=== PATIENT | male | born 1935 | race Caucasian/White ===

== ENCOUNTER 2017-03-02 08:07 | Emergency (ER) | payer OTHER, MEDICARE ==
[~2017-03-02] VITALS: Ht 175.3 cm; Wt 78.0 kg
[2017-03-02 08:14] VITALS: BP 139/83
[2017-03-02] MEDS ORDERED: METOPROLOL TART25 M1 PO ×2 (08:20→08:21)
[2017-03-02] MEDS ORDERED: ATORVASTATIN CA10 M1 PO (08:21)
[2017-03-02] MEDS ORDERED: XALATAN2.5 ML OPH (08:21)
[2017-03-02] MEDS ORDERED: WARFARIN SODIUM4 M1 PO (08:21)
[2017-03-02] MEDS ORDERED: PRESERVISION A1 EAC1 PO (08:22)
--- NOTE | 2017-03-02 08:35 | ED MVC/FALL/TRAUMA COMPLAINT ---
History of Present Illness General Chief Complaint: General Adult Stated Complaint: BACK/R HIP PAIN S/P FALL LAST WEEK Source: patient, family Exam Limitations: no limitations Vital Signs & Intake/Output Vital Signs & Intake/Output Vital Signs Date Time Temp Pulse Resp B/P B/P Pulse O2 O2 Flow FiO2 Mean Ox Delivery Rate 03/02 0814 96.9 68 20 139/83 100 Room Air Allergies Coded Allergies: No Known Allergies (12/06/15) Reconcile Medications Atorvastatin Calcium 10 MG TABLET 1 TAB PO DAILY CHOLESTEROL (Reported) Latanoprost (Xalatan) 0.005 % DROPS 1 GTT OPH DAILY EYE (Reported) Metoprolol Tartrate 25 MG TABLET 2 TAB PO DAILY HEART (Reported) Metoprolol Tartrate 25 MG TABLET 1 TAB PO QPM HEART (Reported) Tramadol HCl 50 MG TABLET 1 TAB PO BIDP PRN pain Vit C/E/Zn/Coppr/Lutein/Zeaxan (Preservision Areds 2 Softgel) 250-200-40 CAPSULE 1 TAB PO DAILY EYE (Reported) Warfarin Sodium 4 MG TABLET 1 TAB PO DAILY BLOOD THINNER (Reported) Triage Note: C/O MID, LOW BACK AND R HIP PAIN X 9 DAYS. S/P FALL. STATES HIS R LEG GAVE OUT AND HE LANDED ON A WOODEN BEAM WHILE CLEANING OUT GARAGE. DENIES DIZZINESS, WEAKNESS, CHEST PAIN PRIOR TO FALL. Triage Nurses Notes Reviewed? yes Onset: Abrupt Duration: day(s): Timing: recent history Severity: moderate Injuries/Fall Location: back, lower extremity Method of Injury: fall Loss of Consciousness: no loss of consciousness No Modifying Factors: none HPI: 81y/o male presents to emergency department complaining of Right hip and low back pain after fall 9 days ago. Patient states that while walking in garage his right leg gave out causing him to fall backward onto his right hip and back. He was able to get up and stand on his own after fall. He may have hit the back of his head however he denies loss of consciousness. Pain is described as throbbing with radiation to right hip to right knee and sometimes all the way down to right foot. At times pain is worse with laying down. Patient has tried Tylenol which has not alleviated his pain. he denies chest pain, abdominal pain , confusion, changes in vision, photophobia, worsening of headaches. (RUFUS ORANTES,MELINA) Past History Travel History Traveled to [place] past 21 day No Medical History Any Pertinent Medical History? see below for history Neurological: NONE EENT: NONE Cardiovascular: hypertension, PACEMAKER, Respiratory: NONE Gastrointestinal: NONE Hepatic: NONE Renal: NONE Musculoskeletal: osteoarthritis Psychiatric: NONE Endocrine: NONE Blood Disorders: NONE Cancer(s): NONE Surgical History Surgical History: non-contributory Psychosocial History Who do you live with Patient/Self What is your primary language Korean Tobacco Use: Current Daily Use Daily Tobacco Use Amount/Type: Cigar or Pipe use daily ETOH Use: denies use Family History Hx Contributory? No (MELINA MALAGON) Review of Systems Review of Systems Constitutional: Reports: weakness. Comments Review of systems: See HPI, All other systems negative. Constitutional: Intermittent weakness, no chills no fever, no malaise no weight loss HEENT: No visual changes no photophobia Cardiovascular: No chest pain , no palpitation, no syncope Skin: no rashes, no change in skin, no bruises Respiratory: No dyspnea no cough GI: No nausea no vomiting, no abdominal pain : No urinary retention Muscle skeletal: + chronic joint pain, no joint swelling,+ back pain, no neck pain, Neurologic: No numbness no confusion, +headacheS Psych: No stress no depression,. Heme/endocrine: No bruising no bleeding Immunology: No lymphadenopathy (MELINA MALAGON) Physical Exam Physical Exam General Appearance: well developed/nourished, no apparent distress, alert, awake Comments: Well-developed well-nourished person in no acute distress HEENT: Hearing grossly normal; EOMI, HEAD is atraumatic. moist mucous membranes. Neck: Supple, normal range of motion without pain or tenderness Back: Thoracic and Lumbar vertebrae without tenderness, +Sacral tenderness Full range of motion Cardiovascular: Regular rate and rhythms no murmurs rubs or gallops Respiratory: Chest nontender. No respiratory distress. Patient speaking in full complete sentences. Breath sounds clear to auscultation bilaterally: NO W/R/R Abdomen: Soft, nontender nondistended, No rebound/guarding Extremity: No edema, full range of motion of extremities,5 out of 5 strength noted to bilateral lower extremities, tenderness at right hip joint, right upper thigh and right knee, straight leg raise is negative Neuro: Alert oriented x3, motor sensory normal. There were no obvious focal neurologic abnormalities. Skin: No appreciable rash on exposed skin, skin is warm and dry. Psych: Mood and affect is normal, memory and judgment is normal. Core Measures ACS in differential dx? No Severe Sepsis Present: No Septic Shock Present: No (MELINA MALAGON) Progress Differential Diagnosis: abd injury, C/T/L spine injury, ext injury, pelvis injury, muscle strain, bone contusion, radiculopathy Plan of Care: Orders Procedure Date/time Status XRY-AP PELVIS 03/02 845 Active XRY-HIP 2-3 VIEWS, RIGHT 03/02 845 Active 03/02/2017 9:08:08 AM Patient is sitting comfortably in stretcher, in no acute distress. He is able to ambulate with cane, able to move all limbs. No acute fracture seen on x-ray as confirmed with radiologist. Signs and symptoms are consistent with hip contusion. Adomenal/vertebral injuries were considered and evaluated for on physical exam, no tenderness to palpatation observed, suspicion for these injuries is low at this time. Patient was instructed to take tramadol or tylenol for pain, rest, apply ice, and follow up with his primary care doctor. He is in agreement with the plan of care. He will follow up with worsening symptoms or concerns. (MELINA MALAGON) Diagnostic Imaging: Viewed by Me: Radiology Read. Discussed w/RAD: Radiology Read. Radiology Impression: PATIENT: YESI AYERS PRESENT AGE: 81 PATIENT ACCOUNT NO: [id number] : 34 LOCATION: [facility] ORDERING PHYSICIAN: MELINA ORANTES SERVICE DATE: 03/02/17 EXAM TYPE: RAD - XRY- AP PELVIS; XRY-HIP 2-3 VIEWS, RIGHT EXAMINATION: XR PELVIS XR HIP, RIGHT CLINICAL INFORMATION: Right hip and sacral pain status post fall, for 9 days. COMPARISON: 07/27/2016 TECHNIQUE: Frontal view of the pelvis. 2 views of the right hip. FINDINGS: No fracture or dislocation. The femoral heads are well- seated within their respective acetabula. Mild joint space narrowing at both hips with subchondral sclerosis. The pelvic rim is intact. The sacroiliac joints and pubic symphysis are intact. Phleboliths overlie the pelvis. The bowel gas pattern is unremarkable. Degenerative changes of the lower lumbar spine. IMPRESSION: No acute fracture or malalignment. Mild degenerative change. DICTATED BY: MALU TEMPLETON MD DATE/TIME DICTATED:03/02/17933 WORKERS COMPENSATION ANALYST:NISHA DATE/TIME TRANSCRIBED:03/02/17933 CONFIDENTIAL, DO NOT COPY WITHOUT APPROPRIATE AUTHORIZATION. <Electronically signed in Other Vendor System> SIGNED BY: MALU TEMPLETON MD 03/02/17941, PATIENT: YESI AYERS PRESENT AGE: 81 PATIENT ACCOUNT NO: [id number] : 34 LOCATION: [facility] ORDERING PHYSICIAN: MELINA ORANTES SERVICE DATE: 03/02/17 EXAM TYPE: RAD - XRY-AP PELVIS; XRY-HIP 2-3 VIEWS, RIGHT EXAMINATION: XR PELVIS XR HIP, RIGHT CLINICAL INFORMATION: Right hip and sacral pain status post fall, for 9 days. COMPARISON: 07/27/2016 TECHNIQUE: Frontal view of the pelvis. 2 views of the right hip. FINDINGS: No fracture or dislocation. The femoral heads are well-seated within their respective acetabula. Mild joint space narrowing at both hips with subchondral sclerosis. The pelvic rim is intact. The sacroiliac joints and pubic symphysis are intact. Phleboliths overlie the pelvis. The bowel gas pattern is unremarkable. Degenerative changes of the lower lumbar spine. IMPRESSION: No acute fracture or malalignment. Mild degenerative change. DICTATED BY: MALU TEMPLETON MD DATE/ TIME DICTATED:03/02/17933 WORKERS COMPENSATION ANALYST:NISHA DATE/TIME TRANSCRIBED: 03/02/17933 CONFIDENTIAL, DO NOT COPY WITHOUT APPROPRIATE AUTHORIZATION. < Electronically signed in Other Vendor System> SIGNED BY: MALU TEMPLETON MD 03/02/17941 Initial ED EKG: none (RUFUS ORANTES,MELINA) Departure Departure Disposition: HOME OR SELF CARE Condition: Stable Clinical Impression Primary Impression: Contusion of hip, right Referrals: CAROLINA COOL,SULMA Sims (PCP/Family) Additional Instructions: Take tramadol as prescribed as directed for breakthrough pain, take Tylenol every 8 hours as needed for pain. Rest, apply ice. Follow-up with your primary care doctor. Return with any worsening symptoms or concerns. Departure Forms: Customer Survey General Discharge Information Prescriptions: Current Visit Scripts Tramadol HCl 1 TAB PO BIDP PRN pain #10 TAB (MELINA MALAGON) PA/CREASING MACHINE OPERATOR Co-Sign Statement Statement: ED Attending supervision documentation- x I saw and evaluated the patient. I have also reviewed all the pertinent lab results and diagnostic results. I agree with the findings and the plan of care as documented in the PA's/CREASING MACHINE OPERATOR's documentation. [] I have reviewed the ED Record and agree with the PA's/CREASING MACHINE OPERATOR's documentation. [] Additions or exceptions (if any) to the PAs/CREASING MACHINE OPERATOR's note and plan are summarized below: [] (PRERNA COOL,CRISTINA) ED Attending Observation Initial Observation Note: I have seen and personally examined YESI AYERS on 03/02/17 at 0858. I agree with the current emergency department documentation. The disposition (admission or discharge) is uncertain at this time, he needs a period of observation for the following reason(s): The ED Nurse caring for this patient has been personally informed as to what the patient is being observed for. (MELINA MALAGON)
[2017-03-02] MEDS ORDERED: TRAMADOL HCL50 M1 PO (09:32)
--- NOTE | 2017-03-02 09:42 | RADIOLOGY REPORT ---
EXAMINATION: XR PELVIS XR HIP, RIGHT CLINICAL INFORMATION: Right hip and sacral pain status post fall, for 9 days. COMPARISON: 07/27/2016 TECHNIQUE: Frontal view of the pelvis. 2 views of the right hip. FINDINGS: No fracture or dislocation. The femoral heads are well-seated within their respective acetabula. Mild joint space narrowing at both hips with subchondral sclerosis. The pelvic rim is intact. The sacroiliac joints and pubic symphysis are intact. Phleboliths overlie the pelvis. The bowel gas pattern is unremarkable. Degenerative changes of the lower lumbar spine. IMPRESSION: No acute fracture or malalignment. Mild degenerative change.
== END 2017-03-02 10:02 ==
LOC: ERH 08:07
DX: S70.01XA Contusion of right hip, initial encounter (principal); W19.XXXA Unspecified fall, initial encounter; Y93.01 Activity, walking, marching and hiking; Y92.015 Private garage of single-family (private) house as the place of occurrence of the external cause
CPT/HCPCS: 72170; 73502-RT